=== PATIENT | female | born 2005 | race Hispanic/Latino ===

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

== ENCOUNTER 2025-04-03 22:49 | Emergency (ER) | payer MEDICAID ==
[~2025-04-03] VITALS: Ht 149.9 cm; Wt 54.0 kg
[2025-04-03 22:52] VITALS: BP 137/90; PULSE 93; RESP 20; TEMP 98.1
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
== END 2025-04-04 00:18 | disposition home or self-care (01) ==
LOC: EDH 22:49
DX: O9A.311 Physical abuse complicating pregnancy, first trimester (principal); Z3A.08 8 weeks gestation of pregnancy; Y04.0XXA Assault by unarmed brawl or fight, initial encounter; Y93.89 Activity, other specified; Y92.89 Other specified places as the place of occurrence of the external cause; Y99.8 Other external cause status
CPT/HCPCS: 36415; 84702; 86900; 86901; 99283